=== PATIENT | female | born 1980 | race Asian ===

== ENCOUNTER 2017-05-09 17:41 | Emergency (ER) | payer OTHER ==
[~2017-05-09] VITALS: Ht 160 cm; Wt 81.2 kg
[~2017-05-09 17:41] MED LIST: CYMBALTA60 MG PO; FIORINAL1 TABLET PO; NO HOME MEDS; PANTOPRAZOLE SO40 MG PO; ZANTAC150 MG PO; ZOFRAN4 MG PO
[2017-05-09 18:34] LABS: HEMATOCRIT 44.2 % (36.0-46.0); MCH 27.3 PG (29.0-34.0); MCHC 32.1 G/DL (30.0-36.0); MEAN PLAT.VOLUME 9.1 uM^3 (9.5-12.4); PLATELET COUNT 354 K/uL (156-360); RBC DIS.WIDTH-CV 12.5 % (11.8-14.6); RBC DIS.WIDTH-SD 38.4 % (39-53); WHITE BLOOD COUNT 9.2 K/uL (4.1-10.2)
[2017-05-09 18:57] LABS: TROP-I INTERPRETATION NEGATIVE; TROPONIN-I < 0.01 ng/mL (0.0-0.30)
[2017-05-09 19:12] LABS: CHLORIDE 102 mEq/L (99-109); POTASSIUM 4.4 mEq/L (3.7-5.4); SODIUM 136 mEq/L (136-147)
[2017-05-09 19:14] LABS: GLUCOSE 96 mg/dL (70-99)
[2017-05-09 19:15] LABS: ANION GAP 9 MEQ/L (2-14)
[2017-05-09 19:17] LABS: GFR ESTIMATE (CALCULATED) > 59 mL/min/
[2017-05-09 19:18] LABS: UREA NITROGEN (BUN) 14 mg/dL (9-23)
[2017-05-09 22:25] LABS: TROP-I INTERPRETATION NEGATIVE; TROPONIN-I < 0.01 ng/mL (0.0-0.30)
[2017-05-09 22:41] VITALS: BP 108/72
== END 2017-05-09 22:42 | disposition home or self-care (01) ==
LOC: EME 17:41
PROVIDERS: Emergency Medicine
DX: R07.89 Other chest pain (principal)
CPT/HCPCS: 71020; 80048; 84484; 85027; 93005; 99281; 99285; J2405; J7040